=== PATIENT | male | born 1950 | race Caucasian/White ===

== ENCOUNTER → 2017-02-02 09:43 | Emergency (ER) | payer OTHER ==
[2017-02-02 10:21] VITALS: BP 127/78
--- NOTE | 2017-02-02 11:52 | UC ---
Back Pain HPI - HPI Summary HPI Summary: Patient presents with a past medical history of b-cell non-hodgkins lymphoma, s/ p chemo, radiation and bone marrow transplant. In remission for five years. He is here remodeling his home in [facility]. He has had some thoracic back pain x 2 months that is described as deep aching sensation, that is worse with movement of head and neck, and also wakes him at night, and radiated down his right arm. 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 He has sense began to do PT exercises that have improved his pain. He also states that he had back pain prior to his DX of lymphoma, and called his Hem/Oc doctor who recommend he come to the nearest walk-in for blood work to check on his lymphoma. He states he will call and follow up on the results and if needed he will go back to [facility] for evaluation from his Hem/Oc. - History of Current Complaint Chief Complaint: UCBackPain Stated Complaint: NECK/BACK/ARM PAIN Time Seen by Provider: 02/02/17 11:19 Hx Obtained From: Patient Onset/Duration: Gradual Onset, Lasting Weeks Timing: Intermittent Severity Initially: Moderate Severity Currently: Mild Back Pain: Is Discrete @ - thoracic spine, Radiates To - right arm, and hand. Character: Aching Aggravating: Movement, Lifting Alleviating: Rest, Position, Nothing - PT exercises Associated Signs And Symptoms: Positive: Tingling - Risk Factors AAA Risk Factors: Negative TAD Risk Factors: Negative Cauda Equina Risk Factors: Negative Epidural Abscess Risk Factors: Negative - Allergies/Home Medications Allergies/Adverse Reactions: Allergies Allergy/AdvReac Type Severity Reaction Status Date / Time No Known Allergies Allergy Verified 02/02/17 10:14 Home Medications: Home Medications Aspirin [Aspirin 81 MG TAB] 02/02/17 [History] Atorvastatin* [Lipitor 10 MG*] 02/02/17 [History] Metoprolol Tartrate TAB* [Lopressor TAB*] 02/02/17 [History] PMH/Surg Hx/FS Hx/Imm Hx Previously Healthy: No - B-cell lymphona in remission - Surgical History Surgical History: Yes - bone marrow transplant - Family History Known Family History: Positive: Other - lung cancer alcoholism complication - Social History Occupation: Retired Alcohol Use: None Substance Use Type: None Smoking Status (MU): Never Smoked Tobacco Review of Systems Constitutional: Fatigue Skin: Negative Eyes: Negative ENT: Negative Respiratory: Negative Cardiovascular: Negative Gastrointestinal: Negative Motor: Weakness - intermittent weakness of right arm and hand. Musculoskeletal: Myalgia Neurological: Negative All Other Systems Reviewed And Are Negative: Yes Physical Exam Triage Information Reviewed: Yes Appearance: Well-Appearing Vital Signs: Initial Vital Signs Temp 98.8 F 02/02/17 10:15 Pulse 73 02/02/17 10:15 Resp 16 02/02/17 10:15 BP 127/78 02/02/17 10:15 Pulse Ox 98 02/02/17 10:15 Vital Signs Reviewed: Yes Eye Exam: Normal ENT Exam: Normal Neck exam: Normal Respiratory Exam: Normal Cardiovascular Exam: Normal Abdominal Exam: Normal Musculoskeletal: Positive: Strength Intact, ROM Intact, No Edema Neurological Exam: Normal Skin Exam: Normal Back Pain Course/Dx - Course Course Of Treatment: Patient presents with a past medical history of B-cell lymphoma and has been in remission for five years. He is s/p chemotherapy, radiation and bone marrow transplant. He had back pain as a symtpom originally. He has had back pain for two months with activity that can expain the pain, but he called his Hem/Oc Dr. Suzanne Mosquera in [facility] who recommend he come to the nearest walk-in for blood work to rule out suspect reoccurance of his cancer. I ordered a CBCw/diff, CMP, and Sed rate which the patient understands he will need to call here for the results. If he is in crisis his plan is to return home [place]. I feel his symtpoms are consisent with thoracic radiulopathy and have improved with PT exercises. I recommend that if the back ruthie worsen, persist or does not continue to improve he will need MRI which I can not offer here today. He declined any additional pain medication today, and would just like to have the blood work. I offered alternative evaluation in the ER as well. He was neuro-vasc intact and appropriate for outpatient follw-up. - Differential Dx/Diagnosis Differential Diagnosis/HQI/PQRI: Other - back pain Provider Diagnoses: back pain Discharge - Discharge Plan Condition: Stable Disposition: HOME Patient Education Materials: Back Pain (ED) Referrals: No Primary Care Phys,NOPCP [Primary Care Provider] - Additional Instructions: Patient will call daily until he has his blood test results, which were cbc w/ diff, cmp, sed rate.
[2017-02-02 16:26] LABS: Hematocrit 48 % (42-52); Mean Corpuscular HGB Conc 34 g/dl (31-36); Mean Corpuscular Hemoglobin 34 pg (27-31); Mean Corpuscular Volume 101 fL (80-94); Mean Platelet Volume 10 um3 (7.4-10.4); Red Blood Count 4.72 10^6/ul (4.0-5.4); Red Cell Distribution Width 13 % (10.5-15); White Blood Count 5.7 10^3/ul (3.5-10.8)
[2017-02-02 16:38] LABS: Albumin 4.7 g/dL (3.2-5.2); BUN/Creatinine Ratio 15.6 (8-20); EGFR African American 100.2 (>60); EGFR Non-African American 77.9 (>60); Globulin 2.2 g/dL (2-4); Potassium 4.9 mmol/L (3.5-5.0); Total Bilirubin 0.8 mg/dL (0.2-1.0); Total Protein 6.9 g/dL (6.4-8.9)
[2017-02-02 17:27] LABS: Erythrocyte Sed Rate 6 mm/Hr (0-40)
--- NOTE | 2017-02-03 08:06 | UC ---
Progress - Progress Note Progress Note: blood count normal but an elevated MCV blood work should be sent to his [facility] and/or cancer doctor
== END | disposition home or self-care (01) ==
LOC: UCEAST 09:43
DX: M54.6 Pain in thoracic spine (principal); M79.601 Pain in right arm; R20.2 Paresthesia of skin; Z85.72 Personal history of non-Hodgkin lymphomas; Z94.81 Bone marrow transplant status; Z79.82 Long term (current) use of aspirin
CPT/HCPCS: 36415; 80053; 85025; 85652; 99201; G0463